=== PATIENT | female | born 1990 | race Hispanic/Latino ===

== ENCOUNTER 2021-05-30 14:41 | Outpatient (CLI) | payer OTHER ==
[2021-05-31 00:37] LABS: SARS-CoV-2 PCR by NAA Not Detected (NotDetected)
== END 2021-05-30 14:42 | disposition home or self-care (01) ==
LOC: CSHLAB 14:41
PROVIDERS: ATTEND Family Medicine
DX: Z01.812 Encounter for preprocedural laboratory examination (principal); Z20.822 Contact with and (suspected) exposure to COVID-19
CPT/HCPCS: U0003; U0005